=== PATIENT | female | born 1990 | race African-American/Black ===

== ENCOUNTER 2017-12-23 12:22 | Emergency (ER) | payer OTHER ==
[~2017-12-23] VITALS: Ht 147.3 cm; Wt 81.8 kg
[~2017-12-23 12:22] MED LIST: CEPHALEXIN500 M1 PO; CLARITIN 1010 MG/TAB PO; FERROUS SU325 MG/TAB PO; FLAGYL500 MG PO; IRON; LORTAB 5/500 501 TAB PO; MOTRIN 600600 MG/TAB PO; NO HOME MEDICATIONS; NORCO 325 MG-51 TAB PO; PERCOCET 325 MG1 TA2 PO; PREDNISONE20 MG PO; PRENATAL1 TA5 PO; ULTRAM 50MG TAB50 MG PO
[2017-12-23] MEDS ORDERED: TRIAMCINOLONE A15 GM TP (13:08)
[2017-12-23 13:22] VITALS: BP 147/74; TEMP 98.5
[2017-12-23 13:28] VITALS: PULSE 90
== END 2017-12-23 13:28 | disposition home or self-care (01) ==
LOC: COL.ER 12:22
DX: R21 Rash and other nonspecific skin eruption (principal); F17.210 Nicotine dependence, cigarettes, uncomplicated; Z88.2 Allergy status to sulfonamides

== ENCOUNTER 2017-12-31 15:51 | Emergency (ER) | payer OTHER ==
[~2017-12-31] VITALS: Ht 147.3 cm; Wt 127.3 kg
[~2017-12-31 15:51] MED LIST changes: +TRIAMCINOLONE A15 GM TP
[2017-12-31 15:52] VITALS: BP 140/82; PULSE 82; TEMP 97.5
[2017-12-31] MEDS ORDERED: FLEXERIL5 MG PO (16:33)
== END 2017-12-31 16:40 | disposition home or self-care (01) ==
LOC: COL.ER 15:51
DX: M54.2 Cervicalgia (principal); M62.838 Other muscle spasm
CPT/HCPCS: J1885; J2360; J7512

== ENCOUNTER 2021-05-10 19:12 | Emergency (ER) | payer MEDICAID ==
[~2021-05-10] VITALS: Ht 147.3 cm; Wt 81.8 kg
[~2021-05-10 19:12] MED LIST changes: +FLEXERIL5 MG PO
[2021-05-10 22:03] VITALS: BP 119/70; PULSE 85; TEMP 98.6
== END 2021-05-10 22:03 | disposition home or self-care (01) ==
LOC: COL.ER 19:12
DX: J06.9 Acute upper respiratory infection, unspecified (principal); Z20.822 Contact with and (suspected) exposure to COVID-19